=== PATIENT | male | born 1940 | race Caucasian/White ===

== ENCOUNTER 2023-12-07 01:15 | Inpatient (IN) | payer MEDICARE ==
[2023-12-07] VITALS (8 sets, daily range): BP systolic 85–155; PULSE 72–85; RESP 13–18; TEMP 96.4–98.6; O2SAT 92–97
[~2023-12-07] VITALS: Ht 170.2 cm; Wt 63.5 kg
[2023-12-07 01:50] LABS: EOSINOPHILS % (AUTO) 0.2 % (0.0-4.0); LYMPHOCYTES # (AUTO) 0.7 K/uL (1.0-5.5); MONOCYTES # (AUTO) 0.8 K/uL (0.0-1.0); RED CELL DISTRIBUTION WIDTH 13.3 % (9.0-15.0)
[2023-12-07 01:56] LABS: ALANINE AMINOTRANSFERASE 29 U/L (12-78); ALBUMIN 4.2 g/dL (3.4-4.8); ANION GAP 9 (5-15); ASPARTATE AMINOTRANSFERASE 27 U/L (10-37); BILIRUBIN,DIRECT 0.3 mg/dL (0.0-0.3); CALCIUM 9.6 mg/dL (8.4-11.0); CARBON DIOXIDE 27 mmol/L (23-29); CHLORIDE 88 mmol/L (98-107); CREATININE 1.24 mg/dL (0.55-1.30); GLUCOSE 161 mg/dL (74-106); LIPASE 51 U/L (16-77); POTASSIUM 4.1 mmol/L (3.5-5.1); SODIUM SERUM 124 mmol/L (136-145); TOTAL BILIRUBIN 1.1 mg/dL (0.0-1.0); TOTAL PROTEIN, SERUM 7.5 g/dL (6.4-8.3); UREA NITROGEN, BLOOD 25 mg/dL (8-21)
[2023-12-07 01:58] LABS: BASOPHILS % (AUTO) 0.1 % (0.0-2.0); RED BLOOD CELL COUNT(AUTO) 4.79 MIL/uL (4.2-6.2)
[2023-12-07 02:12] LABS: HEMATOCRIT 43.5 % (36-54); HEMOGLOBIN 15.2 g/dL (14.0-18.0); LYMPHOCYTES % (AUTO) 4.8 % (20.5-51.5); MEAN CORPUSCULAR HEMOGLOBIN 32 pg (27-31); MEAN CORPUSCULAR HGB CONC 35 % (32-36); MEAN CORPUSCULAR VOLUME 91 fL (79.0-98.0); MONOCYTES % (AUTO) 6.2 % (1.7-9.3); NEUTROPHILS % (AUTO) 88.7 % (40.0-70.0); PLATELET COUNT (AUTO) 257 K/uL (130-430); WHITE BLOOD COUNT (AUTO) 13.6 K/uL (4.8-10.8)
[2023-12-07] MEDS ORDERED: NACL 0.9% 1,000 ML IV ONE (04:00)
[2023-12-07] MEDS ORDERED: CLOP75TA32 PO (04:02)
[2023-12-07] MEDS ORDERED: AMLO10TA88 PO (04:02)
[2023-12-07] MEDS ORDERED: HYDR12.55 PO (04:02)
[2023-12-07] MEDS ORDERED: CARV3.1246 PO (04:02)
[2023-12-07] MEDS ORDERED: VALS160T29 PO (04:02)
[2023-12-07] MEDS ORDERED: ATOR40TA68 PO (04:02)
[2023-12-07] MEDS ORDERED: TRAM50TA2 PO (04:02)
[2023-12-07 04:36] LABS: PROTHROMBIN TIME 10.6 SECS (9.5-12.5)
[2023-12-07] MEDS ORDERED: DONE10TA44 PO (04:57)
[2023-12-07] MEDS ORDERED: metroNIDAZOLE 500 mg/NS 100 mL IVPB IV ONE (06:00)
[2023-12-07] MEDS ORDERED: ONDANSETRON HCL 4 MG/2 ML VIAL ONE (06:00)
[2023-12-07] MEDS ORDERED: ceFAZolin SODIUM 2 GM VIAL ONE (06:00)
[2023-12-07] MEDS ORDERED: GLYCOPYRROLATE 0.2 MG/ML VIAL ONE (06:00)
[2023-12-07] MEDS ORDERED: SEVOFLURANE 15 MIN GAS INH ONE (06:00)
[2023-12-07] MEDS ORDERED: NEOSTIGMINE METHYLSULFATE 1 MG/ML, 10 ML VIAL ONE (06:00)
[2023-12-07] MEDS ORDERED: ROCURONIUM BROMIDE 10 MG/ML (ZEMURON) ONE (06:00)
[2023-12-07] MEDS ORDERED: NS IRRIG SOLN 1000 ML IR ONE (06:00)
[2023-12-07] MEDS ORDERED: WATER FOR IRRIGATION,STERILE 1,000 ML IRRIG.SOLN IR ONE (06:00)
[2023-12-07] MEDS ORDERED: BUPIVACAINE /PF 0.25% 30 ML VIAL INJ ONE (06:00)
[2023-12-07] MEDS ORDERED: PROPOFOL 200MG/ 20ML VIAL (DIPRIVAN) IV ONE (06:00)
[2023-12-07] MEDS ORDERED: NS 1000 ML IV.SOLN IV ONE (06:00)
[2023-12-07] MEDS ORDERED: SUCCINYLCHOLINE CHLORIDE 20 MG/ML(QUELICIN) ONE (06:00)
[2023-12-07] MEDS ORDERED: DEXAMETHASONE SOD PHOSPHATE 4 MG/ML VIAL ONE (06:00)
[2023-12-07 06:26] LABS: BILIRUBIN,URINE NEGATIVE (NEGATIVE); BLOOD, URINE NEGATIVE (NEGATIVE); CLARITY/URINE CLEAR (CLEAR); COLOR,URINE YELLOW (YELLOW); GLUCOSE,URINE TRACE (NEGATIVE); KETONES,URINE 2+ (NEGATIVE); LEUKOCYTE ESTERASE ,URINE NEGATIVE (NEGATIVE); NITRITE, URINE NEGATIVE (NEGATIVE); PROTEIN URINE TRACE (NEGATIVE); UROBILINOGEN,URINE 0.2 (0.2-1.0)
[2023-12-07 07:25] LABS: RBC,URINE 0-3 /HPF (0-3)
[2023-12-07 07:26] LABS: BACTERIA,URINE FEW /HPF (None Seen); WBC,URINE NONE SEEN /HPF (0-3)
[2023-12-07] MEDS ORDERED: HYDROmorphone 1 MG/ML INJ. CARTRIDGE IM PRN (07:30)
[2023-12-07] MEDS: D5/0.45 NS 1,000 ML IV SCH (10:31)
[2023-12-07] MEDS ORDERED: hydrALAZINE HCL 20 MG/ML VIAL IVP PRN (11:15)
[2023-12-07] MEDS: PANTOPRAZOLE SODIUM 40 MG TAB PO ONE (13:13)
[2023-12-07 14:32] LABS: FREE T4 (FREE THYROXINE) 1.5 ng/dl (0.8-1.5); THYROID STIMULATING HORMONE 0.83 uIu/mL (0.36-3.74)
[2023-12-07] MEDS: NACL 0.9% 1,000 ML IV SCH (16:58)
[2023-12-07] MEDS: PIPERACILLIN/TAZO 3.375 GM in D5W 50 ML IV SCH (17:10)
[2023-12-07] MEDS: HYDROcodone/ACETAMIN 5-325 MG TAB (NORCO/ VICODIN) PO PRN (18:20)
[2023-12-07] MEDS: COMMUNICATION ORDER XX ONE (21:45)
[2023-12-07] MEDS: LR 500 ML IV ONE (22:44)
[2023-12-08] VITALS: BP_SYST 108; PULSE 85; RESP 16; TEMP 97.8; O2SAT 96
[2023-12-08 08:05] VITALS: BP_SYST 115; PULSE 81; RESP 18; TEMP 98.6; O2SAT 99
[2023-12-08] MEDS: QUEtiapine FUMARATE 25 MG TABLET PO ONE (10:00)
[2023-12-08] MEDS: PANTOPRAZOLE SODIUM 40 MG TAB PO SCH (10:00)
[2023-12-08 10:30] LABS: ALANINE AMINOTRANSFERASE 17 U/L (12-78); ALBUMIN 2.6 g/dL (3.4-4.8); ANION GAP 9 (5-15); ASPARTATE AMINOTRANSFERASE 27 U/L (10-37); CALCIUM 8.3 mg/dL (8.4-11.0); CARBON DIOXIDE 24 mmol/L (23-29); CHLORIDE 91 mmol/L (98-107); GLUCOSE 107 mg/dL (74-106); POTASSIUM 4.1 mmol/L (3.5-5.1); SODIUM SERUM 124 mmol/L (136-145); TOTAL BILIRUBIN 0.9 mg/dL (0.0-1.0); TOTAL PROTEIN, SERUM 5.4 g/dL (6.4-8.3); UREA NITROGEN, BLOOD 37 mg/dL (8-21)
[2023-12-08 10:31] LABS: BASOPHILS % (AUTO) 0.1 % (0.0-2.0); HEMATOCRIT 35.5 % (36-54); HEMOGLOBIN 12.2 g/dL (14.0-18.0); LYMPHOCYTES # (AUTO) 0.3 K/uL (1.0-5.5); LYMPHOCYTES % (AUTO) 1.8 % (20.5-51.5); MEAN CORPUSCULAR HEMOGLOBIN 31 pg (27-31); MEAN CORPUSCULAR HGB CONC 34 % (32-36); MEAN CORPUSCULAR VOLUME 91 fL (79.0-98.0); MONOCYTES % (AUTO) 6.5 % (1.7-9.3); NEUTROPHILS # (AUTO) 14.5 K/uL (1.8-7.7); NEUTROPHILS % (AUTO) 91.6 % (40.0-70.0); PLATELET COUNT (AUTO) 179 K/uL (130-430); RED CELL DISTRIBUTION WIDTH 13.4 % (9.0-15.0); WHITE BLOOD COUNT (AUTO) 15.8 K/uL (4.8-10.8)
[2023-12-08 11:04] VITALS: BP_SYST 131; PULSE 79; RESP 16; TEMP 97.6; O2SAT 96
[2023-12-08] MEDS ORDERED: LORazepam 2 MG/ML VIAL IVP PRN ×2 (15:15)
[2023-12-08 16:12] VITALS: BP_SYST 127; PULSE 76; RESP 14; TEMP 98; O2SAT 96
[2023-12-08] MEDS: ACETAMINOPHEN 325 MG TABLET PO PRN (18:02)
[2023-12-08] MEDS: D5/0.45 NS 1,000 ML IV SCH (18:04)
[2023-12-08] MEDS: SIMETHICONE 80 MG TAB.CHEW PO SCH (20:38)
[2023-12-08] MEDS ORDERED: QUEtiapine FUMARATE 25 MG TABLET PO SCH (21:00)
[2023-12-09 00:40] VITALS: BP_SYST 118; PULSE 91; RESP 16; TEMP 97.8; O2SAT 97
[2023-12-09 05:09] VITALS: RESP 20; TEMP 98.3; O2SAT 98
[2023-12-09 06:27] LABS: BASOPHILS % (AUTO) 0.1 % (0.0-2.0); EOSINOPHILS % (AUTO) 0.1 % (0.0-4.0); HEMOGLOBIN 9.9 g/dL (14.0-18.0); LYMPHOCYTES # (AUTO) 0.4 K/uL (1.0-5.5); LYMPHOCYTES % (AUTO) 2.7 % (20.5-51.5); MEAN CORPUSCULAR HEMOGLOBIN 32 pg (27-31); MEAN CORPUSCULAR HGB CONC 35 % (32-36); MEAN CORPUSCULAR VOLUME 91 fL (79.0-98.0); MONOCYTES # (AUTO) 1.1 K/uL (0.0-1.0); MONOCYTES % (AUTO) 7.7 % (1.7-9.3); NEUTROPHILS # (AUTO) 12.8 K/uL (1.8-7.7); NEUTROPHILS % (AUTO) 89.4 % (40.0-70.0); PLATELET COUNT (AUTO) 156 K/uL (130-430); RED BLOOD CELL COUNT(AUTO) 3.08 MIL/uL (4.2-6.2); RED CELL DISTRIBUTION WIDTH 13.6 % (9.0-15.0); WHITE BLOOD COUNT (AUTO) 14.4 K/uL (4.8-10.8)
[2023-12-09 06:53] LABS: ALANINE AMINOTRANSFERASE 17 U/L (12-78); ALBUMIN 2.1 g/dL (3.4-4.8); ANION GAP 7 (5-15); ASPARTATE AMINOTRANSFERASE 20 U/L (10-37); CALCIUM 8.6 mg/dL (8.4-11.0); CARBON DIOXIDE 25 mmol/L (23-29); CHLORIDE 91 mmol/L (98-107); GLUCOSE 127 mg/dL (74-106); SODIUM SERUM 123 mmol/L (136-145); TOTAL BILIRUBIN 0.7 mg/dL (0.0-1.0); UREA NITROGEN, BLOOD 32 mg/dL (8-21)
[2023-12-09] MEDS: D5NS 1,000 ML IV SCH (09:57)
[2023-12-09 12:17] VITALS: BP_SYST 120; PULSE 77; RESP 18; TEMP 97.8; O2SAT 98
[2023-12-09 16:04] VITALS: BP_SYST 143; PULSE 85; RESP 18; TEMP 98.9; O2SAT 96
[2023-12-09] MEDS: SIMETHICONE 80 MG TAB.CHEW PO ONE (18:29)
[2023-12-09 20:00] VITALS: BP_SYST 137; PULSE 89; RESP 18; TEMP 98.2; O2SAT 98
[2023-12-10] VITALS (9 sets, daily range): BP systolic 101–140; PULSE 65–89; RESP 16–20; TEMP 97.8–98.8; O2SAT 94–96
[2023-12-10 05:12] LABS: BASOPHILS % (AUTO) 0.1 % (0.0-2.0); EOSINOPHILS # (AUTO) 0.1 K/uL (0.0-0.4); EOSINOPHILS % (AUTO) 0.4 % (0.0-4.0); HEMATOCRIT 24.9 % (36-54); HEMOGLOBIN 8.8 g/dL (14.0-18.0); LYMPHOCYTES # (AUTO) 0.4 K/uL (1.0-5.5); LYMPHOCYTES % (AUTO) 2.6 % (20.5-51.5); MEAN CORPUSCULAR HEMOGLOBIN 32 pg (27-31); MEAN CORPUSCULAR HGB CONC 35 % (32-36); MEAN CORPUSCULAR VOLUME 90 fL (79.0-98.0); MONOCYTES # (AUTO) 1.2 K/uL (0.0-1.0); MONOCYTES % (AUTO) 8.2 % (1.7-9.3); NEUTROPHILS # (AUTO) 13.2 K/uL (1.8-7.7); NEUTROPHILS % (AUTO) 88.7 % (40.0-70.0); PLATELET COUNT (AUTO) 159 K/uL (130-430); RED BLOOD CELL COUNT(AUTO) 2.77 MIL/uL (4.2-6.2); RED CELL DISTRIBUTION WIDTH 13.7 % (9.0-15.0); WHITE BLOOD COUNT (AUTO) 14.9 K/uL (4.8-10.8)
[2023-12-10 05:17] LABS: ALANINE AMINOTRANSFERASE 19 U/L (12-78); ALBUMIN 1.8 g/dL (3.4-4.8); ANION GAP 5 (5-15); ASPARTATE AMINOTRANSFERASE 17 U/L (10-37); CALCIUM 8.4 mg/dL (8.4-11.0); CARBON DIOXIDE 26 mmol/L (23-29); CHLORIDE 89 mmol/L (98-107); CREATININE 0.95 mg/dL (0.55-1.30); GLUCOSE 121 mg/dL (74-106); POTASSIUM 4.2 mmol/L (3.5-5.1); SODIUM SERUM 120 mmol/L (136-145); TOTAL BILIRUBIN 0.7 mg/dL (0.0-1.0); TOTAL PROTEIN, SERUM 4.8 g/dL (6.4-8.3)
[2023-12-10 06:33] LABS: UREA NITROGEN, BLOOD 26 mg/dL (8-21)
[2023-12-10] MEDS: SODIUM CHLORIDE 3% *HI-ALERT* 250 ML IV SCH (12:14)
[2023-12-11] VITALS: BP_SYST 134; PULSE 78; RESP 18; TEMP 98.7; O2SAT 96
[2023-12-11 04:42] LABS: BASOPHILS % (AUTO) 0.1 % (0.0-2.0); EOSINOPHILS # (AUTO) 0.2 K/uL (0.0-0.4); EOSINOPHILS % (AUTO) 1.7 % (0.0-4.0); HEMATOCRIT 23.1 % (36-54); HEMOGLOBIN 8.2 g/dL (14.0-18.0); LYMPHOCYTES # (AUTO) 0.6 K/uL (1.0-5.5); LYMPHOCYTES % (AUTO) 4.7 % (20.5-51.5); MEAN CORPUSCULAR HEMOGLOBIN 32 pg (27-31); MEAN CORPUSCULAR HGB CONC 36 % (32-36); MEAN CORPUSCULAR VOLUME 90 fL (79.0-98.0); MONOCYTES # (AUTO) 1.8 K/uL (0.0-1.0); MONOCYTES % (AUTO) 14.1 % (1.7-9.3); NEUTROPHILS # (AUTO) 9.8 K/uL (1.8-7.7); NEUTROPHILS % (AUTO) 79.4 % (40.0-70.0); PLATELET COUNT (AUTO) 184 K/uL (130-430); RED BLOOD CELL COUNT(AUTO) 2.58 MIL/uL (4.2-6.2); RED CELL DISTRIBUTION WIDTH 13.6 % (9.0-15.0); WHITE BLOOD COUNT (AUTO) 12.4 K/uL (4.8-10.8)
[2023-12-11 05:09] LABS: ALANINE AMINOTRANSFERASE 20 U/L (12-78); ALBUMIN 1.6 g/dL (3.4-4.8); ANION GAP 6 (5-15); ASPARTATE AMINOTRANSFERASE 17 U/L (10-37); CALCIUM 8.1 mg/dL (8.4-11.0); CARBON DIOXIDE 24 mmol/L (23-29); CHLORIDE 92 mmol/L (98-107); CREATININE 0.83 mg/dL (0.55-1.30); GLUCOSE 88 mg/dL (74-106); POTASSIUM 3.8 mmol/L (3.5-5.1); SODIUM SERUM 122 mmol/L (136-145); TOTAL BILIRUBIN 0.8 mg/dL (0.0-1.0); TOTAL PROTEIN, SERUM 4.4 g/dL (6.4-8.3); UREA NITROGEN, BLOOD 24 mg/dL (8-21)
[2023-12-11 08:50] VITALS: BP_SYST 119; PULSE 87; RESP 18; TEMP 97.5; O2SAT 95
[2023-12-11 09:45] VITALS: O2SAT 95
[2023-12-11] MEDS: SODIUM CHLORIDE 3% *HI-ALERT* 500 ML IV ONE (10:41)
[2023-12-11 12:41] VITALS: BP_SYST 137; PULSE 85; RESP 18; TEMP 98.8; O2SAT 96
[2023-12-11] MEDS: ATORVASTATIN 20 MG TABLET PO ONE (16:01)
[2023-12-11] MEDS: CLOPIDOGREL BISULFATE 75 MG TABLET PO ONE (16:01)
[2023-12-11 16:32] VITALS: BP_SYST 124; PULSE 80; RESP 17; TEMP 98; O2SAT 95
[2023-12-11 20:00] VITALS: BP_SYST 137; PULSE 84; RESP 18; TEMP 98.1; O2SAT 96
[2023-12-11 22:26] LABS: ANION GAP 4 (5-15); CALCIUM 7.9 mg/dL (8.4-11.0); CARBON DIOXIDE 27 mmol/L (23-29); CHLORIDE 92 mmol/L (98-107); CREATININE 0.96 mg/dL (0.55-1.30); GLUCOSE 105 mg/dL (74-106); POTASSIUM 3.4 mmol/L (3.5-5.1); SODIUM SERUM 123 mmol/L (136-145); UREA NITROGEN, BLOOD 21 mg/dL (8-21)
[2023-12-12] VITALS (7 sets, daily range): BP systolic 132–138; PULSE 78–90; RESP 15–20; TEMP 97.8–99.2; O2SAT 95–98
[2023-12-12 04:53] LABS: BASOPHILS % (AUTO) 0.2 % (0.0-2.0); EOSINOPHILS # (AUTO) 0.4 K/uL (0.0-0.4); HEMATOCRIT 23.5 % (36-54); HEMOGLOBIN 8.2 g/dL (14.0-18.0); LYMPHOCYTES # (AUTO) 0.6 K/uL (1.0-5.5); LYMPHOCYTES % (AUTO) 4.8 % (20.5-51.5); MEAN CORPUSCULAR HEMOGLOBIN 31 pg (27-31); MEAN CORPUSCULAR HGB CONC 35 % (32-36); MEAN CORPUSCULAR VOLUME 90 fL (79.0-98.0); MONOCYTES # (AUTO) 2.1 K/uL (0.0-1.0); MONOCYTES % (AUTO) 17.2 % (1.7-9.3); NEUTROPHILS % (AUTO) 74.8 % (40.0-70.0); PLATELET COUNT (AUTO) 226 K/uL (130-430); RED CELL DISTRIBUTION WIDTH 13.6 % (9.0-15.0); WHITE BLOOD COUNT (AUTO) 12.1 K/uL (4.8-10.8)
[2023-12-12 05:05] LABS: ALANINE AMINOTRANSFERASE 29 U/L (12-78); ALBUMIN 1.6 g/dL (3.4-4.8); ANION GAP 7 (5-15); ASPARTATE AMINOTRANSFERASE 19 U/L (10-37); CALCIUM 7.9 mg/dL (8.4-11.0); CARBON DIOXIDE 27 mmol/L (23-29); CHLORIDE 92 mmol/L (98-107); CREATININE 0.86 mg/dL (0.55-1.30); GLUCOSE 100 mg/dL (74-106); POTASSIUM 3.3 mmol/L (3.5-5.1); SODIUM SERUM 126 mmol/L (136-145); TOTAL PROTEIN, SERUM 4.6 g/dL (6.4-8.3); UREA NITROGEN, BLOOD 19 mg/dL (8-21)
[2023-12-12] MEDS: ATORVASTATIN 20 MG TABLET PO SCH (09:56)
[2023-12-12] MEDS: CLOPIDOGREL BISULFATE 75 MG TABLET PO SCH (09:56)
[2023-12-12] MEDS ORDERED: SODIUM CHLORIDE 3% *HI-ALERT* 500 ML IV SCH (11:15)
[2023-12-12] MEDS: MAGNESIUM SULFATE 50 ML IV ONE (11:49)
[2023-12-12] MEDS: POTASSIUM CHLORIDE 20 MEQ/PKT PACKET PO ONE (11:49)
[2023-12-12] MEDS ORDERED: SODIUM CHLORIDE 3% *HI-ALERT* 300 ML IV SCH (13:00)
[2023-12-12] MEDS: OLANZapine IntraMuscular 10 MG VIAL (FOR I.M. INJECTION ONLY) IM PRN (23:28)
[2023-12-13] VITALS (7 sets, daily range): BP systolic 126–152; PULSE 76–101; RESP 15–18; TEMP 97.1–99.6; O2SAT 94–99
[2023-12-13 05:27] LABS: HEMATOCRIT 25.3 % (36-54); HEMOGLOBIN 8.9 g/dL (14.0-18.0); MEAN CORPUSCULAR HEMOGLOBIN 32 pg (27-31); MEAN CORPUSCULAR HGB CONC 35 % (32-36); MEAN CORPUSCULAR VOLUME 92 fL (79.0-98.0); PLATELET COUNT (AUTO) 294 K/uL (130-430); RED BLOOD CELL COUNT(AUTO) 2.76 MIL/uL (4.2-6.2); RED CELL DISTRIBUTION WIDTH 13.4 % (9.0-15.0); WHITE BLOOD COUNT (AUTO) 10.3 K/uL (4.8-10.8)
[2023-12-13 05:34] LABS: ALANINE AMINOTRANSFERASE 33 U/L (12-78); ALBUMIN 1.9 g/dL (3.4-4.8); ANION GAP 5 (5-15); ASPARTATE AMINOTRANSFERASE 28 U/L (10-37); CALCIUM 8.6 mg/dL (8.4-11.0); CARBON DIOXIDE 29 mmol/L (23-29); CHLORIDE 94 mmol/L (98-107); CREATININE 0.98 mg/dL (0.55-1.30); GLUCOSE 103 mg/dL (74-106); POTASSIUM 3.6 mmol/L (3.5-5.1); SODIUM SERUM 128 mmol/L (136-145); TOTAL PROTEIN, SERUM 5.3 g/dL (6.4-8.3); UREA NITROGEN, BLOOD 18 mg/dL (8-21)
[2023-12-13] MEDS: SODIUM CHLORIDE 1,000 MG TABLET PO ONE (09:52)
[2023-12-13 10:44] LABS: BAND % (MANUAL) 4 % (0-6); BASOPHILS % (MANUAL) 0 % (0-2); EOSINOPHILS % (MANUAL) 3 % (0-7); LYMPHOCYTES % (MANUAL) 4 % (20-46); MONOCYTES % (MANUAL) 18 % (0-11)
[2023-12-13 10:45] LABS: PLATELET ESTIMATE ADEQUATE (ADEQUATE)
[2023-12-13] MEDS: SODIUM CHLORIDE 3% *HI-ALERT* 500 ML IV ONE (14:51)
[2023-12-13] MEDS: traZODone HCL 50 MG TABLET (DESYREL) PO SCH (20:14)
[2023-12-13] MEDS ORDERED: SODIUM CHLORIDE 1,000 MG TABLET PO SCH (21:00)
[2023-12-14] VITALS (10 sets, daily range): BP systolic 104–142; PULSE 84–106; RESP 16–20; TEMP 97.5–98.8; O2SAT 90–97
[2023-12-14 08:38] LABS: BASOPHILS % (AUTO) 0.3 % (0.0-2.0); EOSINOPHILS # (AUTO) 0.3 K/uL (0.0-0.4); HEMATOCRIT 23.7 % (36-54); HEMOGLOBIN 8.1 g/dL (14.0-18.0); LYMPHOCYTES # (AUTO) 0.7 K/uL (1.0-5.5); LYMPHOCYTES % (AUTO) 5.8 % (20.5-51.5); MEAN CORPUSCULAR HEMOGLOBIN 31 pg (27-31); MEAN CORPUSCULAR HGB CONC 34 % (32-36); MEAN CORPUSCULAR VOLUME 92 fL (79.0-98.0); MONOCYTES # (AUTO) 1.4 K/uL (0.0-1.0); MONOCYTES % (AUTO) 12.4 % (1.7-9.3); NEUTROPHILS # (AUTO) 9.1 K/uL (1.8-7.7); NEUTROPHILS % (AUTO) 78.5 % (40.0-70.0); PLATELET COUNT (AUTO) 363 K/uL (130-430); RED BLOOD CELL COUNT(AUTO) 2.58 MIL/uL (4.2-6.2); RED CELL DISTRIBUTION WIDTH 13.5 % (9.0-15.0); WHITE BLOOD COUNT (AUTO) 11.6 K/uL (4.8-10.8)
[2023-12-14 08:56] LABS: ALANINE AMINOTRANSFERASE 35 U/L (12-78); ALBUMIN 1.8 g/dL (3.4-4.8); ANION GAP 4 (5-15); ASPARTATE AMINOTRANSFERASE 28 U/L (10-37); CALCIUM 8.3 mg/dL (8.4-11.0); CARBON DIOXIDE 29 mmol/L (23-29); CHLORIDE 96 mmol/L (98-107); CREATININE 0.98 mg/dL (0.55-1.30); GLUCOSE 100 mg/dL (74-106); POTASSIUM 3.2 mmol/L (3.5-5.1); SODIUM SERUM 129 mmol/L (136-145); UREA NITROGEN, BLOOD 14 mg/dL (8-21)
[2023-12-14] MEDS: POTASSIUM CHLORIDE 20 MEQ/PKT PACKET PO ONE (12:32)
[2023-12-14] MEDS: ACETAMINOPHEN/CODEINE 300 MG-30 MG TABLET PO PRN (13:34)
[2023-12-14] MEDS: IPRATROPIUM/ALBUTEROL SULFATE 3 ML AMPUL.NEB (DUONEB) INH ONE (17:15)
[2023-12-14] MEDS: IPRATROPIUM/ALBUTEROL SULFATE 3 ML AMPUL.NEB (DUONEB) ONE (17:51)
[2023-12-14] MEDS: IPRATROPIUM/ALBUTEROL SULFATE 3 ML AMPUL.NEB (DUONEB) INH SCH (19:36)
[2023-12-14] MEDS ORDERED: SODIUM CHLORIDE 3% *HI-ALERT* 500 ML IV SCH (22:45)
[2023-12-15] VITALS (11 sets, daily range): BP systolic 101–125; PULSE 85–99; RESP 18; TEMP 97.9–98.6; O2SAT 93–100
[2023-12-15] MEDS: VANCOMYCIN HCL 1 GM/NS PREMIX 250 ML IV ONE (00:23)
[2023-12-15] MEDS: VANCOMYCIN HCL 1000 MG/VIAL IV ONE (00:30)
[2023-12-15 04:43] LABS: BASOPHILS % (AUTO) 0.2 % (0.0-2.0); EOSINOPHILS # (AUTO) 0.1 K/uL (0.0-0.4); EOSINOPHILS % (AUTO) 0.6 % (0.0-4.0); LYMPHOCYTES # (AUTO) 0.6 K/uL (1.0-5.5); LYMPHOCYTES % (AUTO) 3.7 % (20.5-51.5); MEAN CORPUSCULAR HEMOGLOBIN 32 pg (27-31); MEAN CORPUSCULAR HGB CONC 34 % (32-36); MEAN CORPUSCULAR VOLUME 93 fL (79.0-98.0); MONOCYTES # (AUTO) 1.1 K/uL (0.0-1.0); MONOCYTES % (AUTO) 6.3 % (1.7-9.3); NEUTROPHILS # (AUTO) 15.6 K/uL (1.8-7.7); NEUTROPHILS % (AUTO) 89.2 % (40.0-70.0); PLATELET COUNT (AUTO) 356 K/uL (130-430); RED BLOOD CELL COUNT(AUTO) 2.23 MIL/uL (4.2-6.2); RED CELL DISTRIBUTION WIDTH 13.9 % (9.0-15.0); WHITE BLOOD COUNT (AUTO) 17.5 K/uL (4.8-10.8)
[2023-12-15 04:49] LABS: ALANINE AMINOTRANSFERASE 32 U/L (12-78); ALBUMIN 1.5 g/dL (3.4-4.8); ANION GAP 5 (5-15); ASPARTATE AMINOTRANSFERASE 25 U/L (10-37); CALCIUM 8.1 mg/dL (8.4-11.0); CARBON DIOXIDE 26 mmol/L (23-29); CHLORIDE 98 mmol/L (98-107); CREATININE 1.06 mg/dL (0.55-1.30); GLUCOSE 115 mg/dL (74-106); POTASSIUM 4.1 mmol/L (3.5-5.1); SODIUM SERUM 129 mmol/L (136-145); TOTAL BILIRUBIN 0.8 mg/dL (0.0-1.0); TOTAL PROTEIN, SERUM 4.3 g/dL (6.4-8.3); UREA NITROGEN, BLOOD 21 mg/dL (8-21)
[2023-12-15 06:49] LABS: HEMATOCRIT 20.7 % (36-54); HEMOGLOBIN 7.1 g/dL (14.0-18.0)
[2023-12-15 11:12] LABS: BASOPHILS # (AUTO) 0.1 K/uL (0.0-0.2); BASOPHILS % (AUTO) 0.5 % (0.0-2.0); EOSINOPHILS # (AUTO) 0.2 K/uL (0.0-0.4); EOSINOPHILS % (AUTO) 1.6 % (0.0-4.0); HEMATOCRIT 22.3 % (36-54); HEMOGLOBIN 7.7 g/dL (14.0-18.0); LYMPHOCYTES # (AUTO) 0.5 K/uL (1.0-5.5); LYMPHOCYTES % (AUTO) 3.8 % (20.5-51.5); MEAN CORPUSCULAR HEMOGLOBIN 32 pg (27-31); MEAN CORPUSCULAR HGB CONC 34 % (32-36); MEAN CORPUSCULAR VOLUME 92 fL (79.0-98.0); MONOCYTES # (AUTO) 1.2 K/uL (0.0-1.0); MONOCYTES % (AUTO) 8.5 % (1.7-9.3); NEUTROPHILS # (AUTO) 11.8 K/uL (1.8-7.7); NEUTROPHILS % (AUTO) 85.6 % (40.0-70.0); PLATELET COUNT (AUTO) 391 K/uL (130-430); RED BLOOD CELL COUNT(AUTO) 2.42 MIL/uL (4.2-6.2); RED CELL DISTRIBUTION WIDTH 13.9 % (9.0-15.0); WHITE BLOOD COUNT (AUTO) 13.8 K/uL (4.8-10.8)
[2023-12-15] MEDS: NACL 0.9% 1,000 ML IV SCH (21:16)
[2023-12-15] MEDS: VANCOMYCIN HCL 1,000 MG in NS 250 ML IV SCH (21:17)
[2023-12-16] VITALS (8 sets, daily range): BP systolic 118–152; PULSE 60–97; RESP 14–20; TEMP 97.7–98.2; O2SAT 96–99
[2023-12-16 04:30] LABS: BASOPHILS % (AUTO) 0.3 % (0.0-2.0); EOSINOPHILS # (AUTO) 0.2 K/uL (0.0-0.4); HEMOGLOBIN 8.5 g/dL (14.0-18.0); LYMPHOCYTES # (AUTO) 0.4 K/uL (1.0-5.5); LYMPHOCYTES % (AUTO) 2.5 % (20.5-51.5); MEAN CORPUSCULAR HEMOGLOBIN 32 pg (27-31); MEAN CORPUSCULAR HGB CONC 34 % (32-36); MEAN CORPUSCULAR VOLUME 93 fL (79.0-98.0); MONOCYTES # (AUTO) 1.3 K/uL (0.0-1.0); MONOCYTES % (AUTO) 8.1 % (1.7-9.3); NEUTROPHILS # (AUTO) 13.9 K/uL (1.8-7.7); NEUTROPHILS % (AUTO) 88.1 % (40.0-70.0); PLATELET COUNT (AUTO) 435 K/uL (130-430); RED CELL DISTRIBUTION WIDTH 13.9 % (9.0-15.0); WHITE BLOOD COUNT (AUTO) 15.8 K/uL (4.8-10.8)
[2023-12-16 05:21] LABS: ALANINE AMINOTRANSFERASE 58 U/L (12-78); ALBUMIN 1.8 g/dL (3.4-4.8); ANION GAP 8 (5-15); ASPARTATE AMINOTRANSFERASE 45 U/L (10-37); CALCIUM 8.7 mg/dL (8.4-11.0); CARBON DIOXIDE 27 mmol/L (23-29); CHLORIDE 98 mmol/L (98-107); CREATININE 0.96 mg/dL (0.55-1.30); GLUCOSE 111 mg/dL (74-106); POTASSIUM 4.1 mmol/L (3.5-5.1); SODIUM SERUM 133 mmol/L (136-145); TOTAL BILIRUBIN 0.8 mg/dL (0.0-1.0); TOTAL PROTEIN, SERUM 5.6 g/dL (6.4-8.3); UREA NITROGEN, BLOOD 25 mg/dL (8-21)
[2023-12-16] MEDS: DOCUSATE SODIUM 100 MG CAPSULE PO SCH (22:02)
[2023-12-16] MEDS: PIPERACILLIN/TAZO 3.375 GM in D5W 50 ML IV SCH (22:03)
[2023-12-17] VITALS (12 sets, daily range): BP systolic 114–141; PULSE 90–111; RESP 14–18; TEMP 97.3–98.9; O2SAT 93–100
[2023-12-17 06:53] LABS: BASOPHILS # (AUTO) 0.1 K/uL (0.0-0.2); BASOPHILS % (AUTO) 0.5 % (0.0-2.0); EOSINOPHILS # (AUTO) 0.2 K/uL (0.0-0.4); EOSINOPHILS % (AUTO) 1.3 % (0.0-4.0); HEMATOCRIT 23.8 % (36-54); HEMOGLOBIN 8.1 g/dL (14.0-18.0); LYMPHOCYTES # (AUTO) 0.4 K/uL (1.0-5.5); LYMPHOCYTES % (AUTO) 2.6 % (20.5-51.5); MEAN CORPUSCULAR HEMOGLOBIN 32 pg (27-31); MEAN CORPUSCULAR HGB CONC 34 % (32-36); MEAN CORPUSCULAR VOLUME 94 fL (79.0-98.0); MONOCYTES # (AUTO) 1.2 K/uL (0.0-1.0); MONOCYTES % (AUTO) 8.5 % (1.7-9.3); NEUTROPHILS # (AUTO) 12.4 K/uL (1.8-7.7); NEUTROPHILS % (AUTO) 87.1 % (40.0-70.0); PLATELET COUNT (AUTO) 474 K/uL (130-430); RED BLOOD CELL COUNT(AUTO) 2.54 MIL/uL (4.2-6.2); WHITE BLOOD COUNT (AUTO) 14.2 K/uL (4.8-10.8)
[2023-12-17 07:50] LABS: ALANINE AMINOTRANSFERASE 59 U/L (12-78); ALBUMIN 1.8 g/dL (3.4-4.8); ANION GAP 6 (5-15); ASPARTATE AMINOTRANSFERASE 48 U/L (10-37); CALCIUM 8.7 mg/dL (8.4-11.0); CARBON DIOXIDE 28 mmol/L (23-29); CHLORIDE 100 mmol/L (98-107); CREATININE 1.01 mg/dL (0.55-1.30); GLUCOSE 104 mg/dL (74-106); POTASSIUM 3.4 mmol/L (3.5-5.1); SODIUM SERUM 134 mmol/L (136-145); TOTAL BILIRUBIN 0.8 mg/dL (0.0-1.0); TOTAL PROTEIN, SERUM 5.3 g/dL (6.4-8.3); UREA NITROGEN, BLOOD 25 mg/dL (8-21)
[2023-12-17] MEDS: POTASSIUM CHLORIDE 20 MEQ TABLET.ER PO ONE (09:00)
[2023-12-17] MEDS: FUROSEMIDE 20 MG/2 ML VIAL IVP ONE (10:45)
[2023-12-17] MEDS: METOCLOPRAMIDE HCL 10 MG/2 ML VIAL IVP SCH (13:45)
[2023-12-17] MEDS: HEPARIN SODIUM,PORCINE 5,000 UNITS/ML VIAL SUBCUT SCH (22:15)
[2023-12-18] VITALS (19 sets, daily range): BP systolic 106–152; PULSE 60–123; RESP 14–26; TEMP 97.6–100.8; O2SAT 90–99
[2023-12-18 07:22] LABS: BASOPHILS # (AUTO) 0.1 K/uL (0.0-0.2); BASOPHILS % (AUTO) 0.7 % (0.0-2.0); EOSINOPHILS # (AUTO) 0.2 K/uL (0.0-0.4); EOSINOPHILS % (AUTO) 1.7 % (0.0-4.0); HEMATOCRIT 24.6 % (36-54); HEMOGLOBIN 8.3 g/dL (14.0-18.0); LYMPHOCYTES # (AUTO) 0.5 K/uL (1.0-5.5); LYMPHOCYTES % (AUTO) 4.5 % (20.5-51.5); MEAN CORPUSCULAR HEMOGLOBIN 31 pg (27-31); MEAN CORPUSCULAR HGB CONC 34 % (32-36); MEAN CORPUSCULAR VOLUME 92 fL (79.0-98.0); MONOCYTES # (AUTO) 1.2 K/uL (0.0-1.0); MONOCYTES % (AUTO) 10.8 % (1.7-9.3); NEUTROPHILS # (AUTO) 8.9 K/uL (1.8-7.7); NEUTROPHILS % (AUTO) 82.3 % (40.0-70.0); PLATELET COUNT (AUTO) 532 K/uL (130-430); RED BLOOD CELL COUNT(AUTO) 2.67 MIL/uL (4.2-6.2); WHITE BLOOD COUNT (AUTO) 10.9 K/uL (4.8-10.8)
[2023-12-18 07:45] LABS: ANION GAP 7 (5-15); CALCIUM 8.7 mg/dL (8.4-11.0); CARBON DIOXIDE 28 mmol/L (23-29); CHLORIDE 100 mmol/L (98-107); CREATININE 1.07 mg/dL (0.55-1.30); GLUCOSE 109 mg/dL (74-106); POTASSIUM 3.8 mmol/L (3.5-5.1); SODIUM SERUM 135 mmol/L (136-145); UREA NITROGEN, BLOOD 24 mg/dL (8-21)
[2023-12-18] MEDS: FUROSEMIDE 40 MG/4 ML VIAL IVP SCH (09:01)
[2023-12-18] MEDS ORDERED: DOCU-144 PO (10:48)
[2023-12-18] MEDS ORDERED: PRO40 PO (10:48)
[2023-12-18] MEDS: NACL 0.9% 1,000 ML IV ONE (13:28)
[2023-12-18] MEDS ORDERED: MEROPENEM 1 GM in NS 100 ML IV SCH (14:00)
[2023-12-18] MEDS ORDERED: metroNIDAZOLE 500 mg/NS 100 ML IV SCH (14:00)
[2023-12-18] MEDS: MEROPENEM 1 GM in NS 100 ML IV SCH (14:32)
[2023-12-18] MEDS: KCL 40mEq in D5/0.45NS 1000 mL 1,000 ML IV SCH (14:33)
[2023-12-18] MEDS ORDERED: SEVOFLURANE 15 MIN GAS INH ONE (19:30)
[2023-12-18] MEDS ORDERED: ceFAZolin SODIUM 1 GM VIAL ONE (19:30)
[2023-12-18] MEDS ORDERED: ROCURONIUM BROMIDE 10 MG/ML (ZEMURON) ONE (19:30)
[2023-12-18] MEDS ORDERED: HYDROmorphone 2 MG/ML VIAL ONE (19:30)
[2023-12-18] MEDS ORDERED: SUCCINYLCHOLINE CHLORIDE 20 MG/ML(QUELICIN) ONE (19:30)
[2023-12-18] MEDS ORDERED: [UNRECOGNIZED DRUG - OTHER] IJ ONE (19:30)
[2023-12-18] MEDS ORDERED: NS IRRIG SOLN 1000 ML IR ONE (19:30)
[2023-12-18] MEDS ORDERED: GLYCOPYRROLATE 0.2 MG/ML VIAL ONE (19:30)
[2023-12-18] MEDS ORDERED: METOCLOPRAMIDE HCL 10 MG/10 ML UDC ONE (19:30)
[2023-12-18] MEDS ORDERED: ONDANSETRON HCL 4 MG/2 ML VIAL ONE (19:30)
[2023-12-18] MEDS ORDERED: PROPOFOL DRIP IV ONE (19:30)
[2023-12-18] MEDS ORDERED: WATER FOR IRRIGATION,STERILE 1,000 ML IRRIG.SOLN IR ONE (19:30)
[2023-12-18] MEDS ORDERED: LIDOCAINE HCL IJ ONE (19:30)
[2023-12-18] MEDS ORDERED: *TPN PER PHARMACY XX PRN (22:00)
[2023-12-18] MEDS: MORPHINE 2 MG/ML INJ. SYRINGE IVP PRN (23:00)
[2023-12-18 23:10] LABS: BASOPHILS # (AUTO) 0.1 K/uL (0.0-0.2); BASOPHILS % (AUTO) 0.3 % (0.0-2.0); EOSINOPHILS # (AUTO) 0.1 K/uL (0.0-0.4); EOSINOPHILS % (AUTO) 0.4 % (0.0-4.0); HEMATOCRIT 26.3 % (36-54); HEMOGLOBIN 8.9 g/dL (14.0-18.0); LYMPHOCYTES # (AUTO) 0.3 K/uL (1.0-5.5); LYMPHOCYTES % (AUTO) 1.8 % (20.5-51.5); MEAN CORPUSCULAR HEMOGLOBIN 32 pg (27-31); MEAN CORPUSCULAR HGB CONC 34 % (32-36); MEAN CORPUSCULAR VOLUME 93 fL (79.0-98.0); MONOCYTES # (AUTO) 0.5 K/uL (0.0-1.0); MONOCYTES % (AUTO) 2.8 % (1.7-9.3); NEUTROPHILS # (AUTO) 16.3 K/uL (1.8-7.7); NEUTROPHILS % (AUTO) 94.7 % (40.0-70.0); PLATELET COUNT (AUTO) 628 K/uL (130-430); RED BLOOD CELL COUNT(AUTO) 2.83 MIL/uL (4.2-6.2); WHITE BLOOD COUNT (AUTO) 17.2 K/uL (4.8-10.8)
[2023-12-18 23:33] LABS: ALANINE AMINOTRANSFERASE 52 U/L (12-78); ALBUMIN 1.8 g/dL (3.4-4.8); ANION GAP 8 (5-15); ASPARTATE AMINOTRANSFERASE 37 U/L (10-37); CALCIUM 8.2 mg/dL (8.4-11.0); CARBON DIOXIDE 26 mmol/L (23-29); CHLORIDE 100 mmol/L (98-107); CREATININE 1.29 mg/dL (0.55-1.30); GLUCOSE 137 mg/dL (74-106); POTASSIUM 4.1 mmol/L (3.5-5.1); SODIUM SERUM 134 mmol/L (136-145); TOTAL BILIRUBIN 0.7 mg/dL (0.0-1.0); UREA NITROGEN, BLOOD 22 mg/dL (8-21)
[2023-12-18 23:50] LABS: INR 1.1 (0.80-1.20); PROTHROMBIN TIME 11.8 SECS (9.5-12.5)
[2023-12-19] VITALS (31 sets, daily range): BP systolic 103–146; PULSE 89–108; RESP 16–25; TEMP 97.9–98.5; O2SAT 89–100
[2023-12-19 05:31] LABS: BASOPHILS % (AUTO) 0.2 % (0.0-2.0); HEMATOCRIT 24.4 % (36-54); HEMOGLOBIN 8.1 g/dL (14.0-18.0); LYMPHOCYTES # (AUTO) 0.3 K/uL (1.0-5.5); LYMPHOCYTES % (AUTO) 1.4 % (20.5-51.5); MEAN CORPUSCULAR HEMOGLOBIN 31 pg (27-31); MEAN CORPUSCULAR HGB CONC 33 % (32-36); MEAN CORPUSCULAR VOLUME 93 fL (79.0-98.0); MONOCYTES # (AUTO) 1.4 K/uL (0.0-1.0); MONOCYTES % (AUTO) 7.5 % (1.7-9.3); NEUTROPHILS # (AUTO) 16.6 K/uL (1.8-7.7); NEUTROPHILS % (AUTO) 90.9 % (40.0-70.0); PLATELET COUNT (AUTO) 565 K/uL (130-430); RED BLOOD CELL COUNT(AUTO) 2.63 MIL/uL (4.2-6.2); RED CELL DISTRIBUTION WIDTH 14.2 % (9.0-15.0); WHITE BLOOD COUNT (AUTO) 18.2 K/uL (4.8-10.8)
[2023-12-19 06:03] LABS: ALANINE AMINOTRANSFERASE 47 U/L (12-78); ALBUMIN 1.7 g/dL (3.4-4.8); ANION GAP 6 (5-15); ASPARTATE AMINOTRANSFERASE 32 U/L (10-37); CALCIUM 8.2 mg/dL (8.4-11.0); CARBON DIOXIDE 26 mmol/L (23-29); CHLORIDE 101 mmol/L (98-107); CREATININE 1.15 mg/dL (0.55-1.30); GLUCOSE 133 mg/dL (74-106); POTASSIUM 4.2 mmol/L (3.5-5.1); SODIUM SERUM 133 mmol/L (136-145); TOTAL BILIRUBIN 0.5 mg/dL (0.0-1.0); TOTAL PROTEIN, SERUM 4.7 g/dL (6.4-8.3); UREA NITROGEN, BLOOD 23 mg/dL (8-21)
[2023-12-19 07:08] LABS: PHOSPHORUS 4.5 mg/dL (2.7-4.5)
[2023-12-19] MEDS: PANTOPRAZOLE SODIUM 40 MG/VIAL (PROTONIX) IVP SCH (08:52)
[2023-12-19] MEDS: TAMSULOSIN HCL 0.4 MG CAP PO SCH (08:52)
[2023-12-19] MEDS: MAGNESIUM SULFATE 50 ML IV ONE (08:54)
[2023-12-19] MEDS: D5/0.45 NS 1,000 ML IV SCH (08:57)
[2023-12-19] MEDS: HYDROmorphone 2 MG/ML VIAL ONE (09:48)
[2023-12-19] MEDS: TPN PERIPHERAL IV SCH (21:22)
[2023-12-19] MEDS: SODIUM ACETATE IV SCH (21:22)
[2023-12-19] MEDS: MVI IV SCH (21:22)
[2023-12-19] MEDS: MAGNESIUM SULFATE IV SCH (21:22)
[2023-12-19] MEDS: [UNRECOGNIZED DRUG - OTHER] IV SCH (21:22)
[2023-12-20] VITALS (21 sets, daily range): BP systolic 100–145; PULSE 72–109; RESP 16–32; TEMP 97.8–99.8; O2SAT 92–100
[2023-12-20 06:11] LABS: BASOPHILS % (AUTO) 0.2 % (0.0-2.0); EOSINOPHILS % (AUTO) 0.3 % (0.0-4.0); LYMPHOCYTES # (AUTO) 0.6 K/uL (1.0-5.5); LYMPHOCYTES % (AUTO) 4.7 % (20.5-51.5); MEAN CORPUSCULAR HEMOGLOBIN 31 pg (27-31); MEAN CORPUSCULAR HGB CONC 34 % (32-36); MEAN CORPUSCULAR VOLUME 93 fL (79.0-98.0); MONOCYTES # (AUTO) 1.5 K/uL (0.0-1.0); MONOCYTES % (AUTO) 11.5 % (1.7-9.3); NEUTROPHILS # (AUTO) 10.9 K/uL (1.8-7.7); NEUTROPHILS % (AUTO) 83.3 % (40.0-70.0); PLATELET COUNT (AUTO) 459 K/uL (130-430); RED BLOOD CELL COUNT(AUTO) 2.21 MIL/uL (4.2-6.2); RED CELL DISTRIBUTION WIDTH 14.3 % (9.0-15.0); WHITE BLOOD COUNT (AUTO) 13.1 K/uL (4.8-10.8)
[2023-12-20 06:16] LABS: HEMATOCRIT 20.4 % (36-54); HEMOGLOBIN 6.8 g/dL (14.0-18.0)
[2023-12-20 06:26] LABS: ASPARTATE AMINOTRANSFERASE 26 U/L (10-37); CALCIUM 7.7 mg/dL (8.4-11.0); CHLORIDE 102 mmol/L (98-107); GLUCOSE 133 mg/dL (74-106); PHOSPHORUS 2.6 mg/dL (2.7-4.5); UREA NITROGEN, BLOOD 23 mg/dL (8-21)
[2023-12-20 06:40] LABS: ALANINE AMINOTRANSFERASE 33 U/L (12-78); ALBUMIN 1.4 g/dL (3.4-4.8); ANION GAP 5 (5-15); CARBON DIOXIDE 25 mmol/L (23-29); CREATININE 1.03 mg/dL (0.55-1.30); POTASSIUM 4.2 mmol/L (3.5-5.1); SODIUM SERUM 132 mmol/L (136-145); TOTAL BILIRUBIN 0.4 mg/dL (0.0-1.0); TOTAL PROTEIN, SERUM 4.4 g/dL (6.4-8.3)
[2023-12-20 11:32] LABS: BASOPHILS % (AUTO) 0.4 % (0.0-2.0); EOSINOPHILS # (AUTO) 0.1 K/uL (0.0-0.4); EOSINOPHILS % (AUTO) 0.7 % (0.0-4.0); HEMATOCRIT 24.3 % (36-54); HEMOGLOBIN 8.1 g/dL (14.0-18.0); LYMPHOCYTES # (AUTO) 0.7 K/uL (1.0-5.5); LYMPHOCYTES % (AUTO) 5.8 % (20.5-51.5); MEAN CORPUSCULAR HEMOGLOBIN 31 pg (27-31); MEAN CORPUSCULAR HGB CONC 34 % (32-36); MEAN CORPUSCULAR VOLUME 92 fL (79.0-98.0); MONOCYTES # (AUTO) 1.5 K/uL (0.0-1.0); NEUTROPHILS # (AUTO) 9.4 K/uL (1.8-7.7); NEUTROPHILS % (AUTO) 80.1 % (40.0-70.0); PLATELET COUNT (AUTO) 462 K/uL (130-430); RED BLOOD CELL COUNT(AUTO) 2.65 MIL/uL (4.2-6.2); RED CELL DISTRIBUTION WIDTH 14.4 % (9.0-15.0); WHITE BLOOD COUNT (AUTO) 11.7 K/uL (4.8-10.8)
[2023-12-20] MEDS: MORPHINE 2 MG/ML INJ. SYRINGE IVP PRN (17:59)
[2023-12-20] MEDS ORDERED: NALOXONE HCL 0.4 MG/ML AMP (NARCAN) IVP PRN (18:30)
[2023-12-20] MEDS ORDERED: HYDROcodone/ACETAMIN 5-325 MG TAB (NORCO/ VICODIN) PO PRN (18:30)
[2023-12-20] MEDS: SODIUM ACETATE IV SCH (22:00)
[2023-12-20] MEDS: NA PHOS IV SCH (22:00)
[2023-12-20] MEDS: TPN CENTRAL IV SCH (22:00)
[2023-12-20] MEDS: [UNRECOGNIZED DRUG - OTHER] IV SCH (22:00)
[2023-12-20] MEDS: MAGNESIUM SULFATE IV SCH (22:00)
[2023-12-21] VITALS (15 sets, daily range): BP systolic 110–151; PULSE 92–118; RESP 16–25; TEMP 98.2–100.3; O2SAT 95–100
[2023-12-21] MEDS: COMMUNICATION ORDER XX ONE (02:06)
[2023-12-21] MEDS: KETOROLAC TROMETHAMINE 10 MG TABLET (TORADOL) PO SCH (02:07)
[2023-12-21 06:12] LABS: BASOPHILS # (AUTO) 0.1 K/uL (0.0-0.2); BASOPHILS % (AUTO) 0.5 % (0.0-2.0); EOSINOPHILS # (AUTO) 0.2 K/uL (0.0-0.4); EOSINOPHILS % (AUTO) 2.3 % (0.0-4.0); HEMATOCRIT 24.9 % (36-54); HEMOGLOBIN 8.4 g/dL (14.0-18.0); LYMPHOCYTES # (AUTO) 0.6 K/uL (1.0-5.5); LYMPHOCYTES % (AUTO) 5.7 % (20.5-51.5); MEAN CORPUSCULAR HEMOGLOBIN 31 pg (27-31); MEAN CORPUSCULAR HGB CONC 34 % (32-36); MEAN CORPUSCULAR VOLUME 93 fL (79.0-98.0); MONOCYTES % (AUTO) 10.4 % (1.7-9.3); NEUTROPHILS % (AUTO) 81.1 % (40.0-70.0); PLATELET COUNT (AUTO) 423 K/uL (130-430); RED BLOOD CELL COUNT(AUTO) 2.69 MIL/uL (4.2-6.2); RED CELL DISTRIBUTION WIDTH 14.2 % (9.0-15.0); WHITE BLOOD COUNT (AUTO) 9.9 K/uL (4.8-10.8)
[2023-12-21 06:32] LABS: ALANINE AMINOTRANSFERASE 38 U/L (12-78); ALBUMIN 1.3 g/dL (3.4-4.8); ANION GAP 3 (5-15); ASPARTATE AMINOTRANSFERASE 35 U/L (10-37); CALCIUM 7.6 mg/dL (8.4-11.0); CARBON DIOXIDE 27 mmol/L (23-29); CHLORIDE 99 mmol/L (98-107); CREATININE 0.89 mg/dL (0.55-1.30); GLUCOSE 124 mg/dL (74-106); POTASSIUM 3.8 mmol/L (3.5-5.1); SODIUM SERUM 129 mmol/L (136-145); TOTAL BILIRUBIN 0.5 mg/dL (0.0-1.0); TOTAL PROTEIN, SERUM 4.4 g/dL (6.4-8.3); UREA NITROGEN, BLOOD 22 mg/dL (8-21)
[2023-12-21] MEDS: ONDANSETRON HCL 4 MG/2 ML VIAL IM PRN (18:40)
[2023-12-21] MEDS: D5/0.45 NS 1,000 ML IV SCH (18:46)
[2023-12-21] MEDS: [UNRECOGNIZED DRUG - OTHER] IV SCH (20:14)
[2023-12-21] MEDS: TPN CENTRAL IV SCH (20:14)
[2023-12-21] MEDS: SODIUM ACETATE IV SCH (20:14)
[2023-12-21] MEDS: NA PHOS IV SCH (20:14)
[2023-12-22] VITALS (10 sets, daily range): BP systolic 105–119; PULSE 78–109; RESP 18–19; TEMP 97.8–98.3; O2SAT 95–98
[2023-12-22 06:24] LABS: BASOPHILS % (AUTO) 0.3 % (0.0-2.0); EOSINOPHILS # (AUTO) 0.2 K/uL (0.0-0.4); EOSINOPHILS % (AUTO) 1.7 % (0.0-4.0); HEMATOCRIT 26.3 % (36-54); HEMOGLOBIN 8.9 g/dL (14.0-18.0); LYMPHOCYTES # (AUTO) 0.7 K/uL (1.0-5.5); LYMPHOCYTES % (AUTO) 6.8 % (20.5-51.5); MEAN CORPUSCULAR HEMOGLOBIN 31 pg (27-31); MEAN CORPUSCULAR HGB CONC 34 % (32-36); MEAN CORPUSCULAR VOLUME 92 fL (79.0-98.0); MONOCYTES # (AUTO) 1.3 K/uL (0.0-1.0); MONOCYTES % (AUTO) 13.1 % (1.7-9.3); NEUTROPHILS # (AUTO) 7.8 K/uL (1.8-7.7); NEUTROPHILS % (AUTO) 78.1 % (40.0-70.0); PLATELET COUNT (AUTO) 477 K/uL (130-430); RED BLOOD CELL COUNT(AUTO) 2.87 MIL/uL (4.2-6.2); RED CELL DISTRIBUTION WIDTH 14.2 % (9.0-15.0)
[2023-12-22 07:13] LABS: ALANINE AMINOTRANSFERASE 64 U/L (12-78); ALBUMIN 1.4 g/dL (3.4-4.8); ANION GAP 8 (5-15); CALCIUM 7.7 mg/dL (8.4-11.0); CARBON DIOXIDE 25 mmol/L (23-29); CHLORIDE 96 mmol/L (98-107); CREATININE 0.87 mg/dL (0.55-1.30); GLUCOSE 118 mg/dL (74-106); POTASSIUM 3.9 mmol/L (3.5-5.1); SODIUM SERUM 129 mmol/L (136-145); TOTAL BILIRUBIN 0.6 mg/dL (0.0-1.0); TOTAL PROTEIN, SERUM 4.7 g/dL (6.4-8.3); UREA NITROGEN, BLOOD 22 mg/dL (8-21)
[2023-12-22 08:10] LABS: ASPARTATE AMINOTRANSFERASE 63 U/L (10-37)
[2023-12-22] MEDS: D5NS 1,000 ML IV SCH (14:37)
[2023-12-22] MEDS: NA PHOS IV SCH (22:20)
[2023-12-22] MEDS: TPN CENTRAL IV SCH (22:20)
[2023-12-22] MEDS: SODIUM CHLORIDE IV SCH (22:20)
[2023-12-22] MEDS: [UNRECOGNIZED DRUG - OTHER] IV SCH (22:20)
[2023-12-23] VITALS (11 sets, daily range): BP systolic 104–143; PULSE 95–102; RESP 18–20; TEMP 97.6–99.1; O2SAT 94–100
[2023-12-23 08:05] LABS: ALANINE AMINOTRANSFERASE 113 U/L (12-78); ALBUMIN 1.3 g/dL (3.4-4.8); ANION GAP 5 (5-15); ASPARTATE AMINOTRANSFERASE 97 U/L (10-37); CALCIUM 7.5 mg/dL (8.4-11.0); CARBON DIOXIDE 26 mmol/L (23-29); CHLORIDE 96 mmol/L (98-107); CREATININE 0.74 mg/dL (0.55-1.30); GLUCOSE 110 mg/dL (74-106); PHOSPHORUS 1.9 mg/dL (2.7-4.5); POTASSIUM 3.8 mmol/L (3.5-5.1); SODIUM SERUM 127 mmol/L (136-145); TOTAL BILIRUBIN 0.4 mg/dL (0.0-1.0); TOTAL PROTEIN, SERUM 4.4 g/dL (6.4-8.3); UREA NITROGEN, BLOOD 23 mg/dL (8-21)
[2023-12-23 08:17] LABS: BASOPHILS % (AUTO) 0.5 % (0.0-2.0); EOSINOPHILS # (AUTO) 0.2 K/uL (0.0-0.4); EOSINOPHILS % (AUTO) 2.9 % (0.0-4.0); HEMATOCRIT 26.2 % (36-54); LYMPHOCYTES # (AUTO) 0.5 K/uL (1.0-5.5); LYMPHOCYTES % (AUTO) 7.4 % (20.5-51.5); MEAN CORPUSCULAR HEMOGLOBIN 31 pg (27-31); MEAN CORPUSCULAR HGB CONC 35 % (32-36); MEAN CORPUSCULAR VOLUME 91 fL (79.0-98.0); MONOCYTES # (AUTO) 1.1 K/uL (0.0-1.0); MONOCYTES % (AUTO) 14.3 % (1.7-9.3); NEUTROPHILS # (AUTO) 5.6 K/uL (1.8-7.7); PLATELET COUNT (AUTO) 405 K/uL (130-430); RED CELL DISTRIBUTION WIDTH 14.1 % (9.0-15.0); WHITE BLOOD COUNT (AUTO) 7.5 K/uL (4.8-10.8)
[2023-12-23 11:04] LABS: NEUTROPHILS % (AUTO) 74.9 % (40.0-70.0)
[2023-12-23] MEDS: FUROSEMIDE 20 MG/2 ML VIAL IVP ONE (11:11)
[2023-12-23] MEDS: MAGNESIUM SULFATE 50 ML IV ONE (11:12)
[2023-12-23] MEDS: NA PHOS 30 MM in NS 250 ML IV ONE (13:44)
[2023-12-23] MEDS: ALBUMIN HUMAN 25% 50 ML IV SCH (16:11)
[2023-12-23] MEDS: TPN CENTRAL IV SCH (22:57)
[2023-12-23] MEDS: [UNRECOGNIZED DRUG - OTHER] IV SCH (22:57)
[2023-12-23] MEDS: NA PHOS IV SCH (22:57)
[2023-12-23] MEDS: SODIUM CHLORIDE IV SCH (22:57)
[2023-12-24] VITALS (8 sets, daily range): BP systolic 115–130; PULSE 87–97; RESP 16–22; TEMP 98.4–99.1; O2SAT 96–99
[2023-12-24 07:05] LABS: ALANINE AMINOTRANSFERASE 123 U/L (12-78); ALBUMIN 1.8 g/dL (3.4-4.8); ANION GAP 6 (5-15); ASPARTATE AMINOTRANSFERASE 95 U/L (10-37); CALCIUM 7.7 mg/dL (8.4-11.0); CARBON DIOXIDE 26 mmol/L (23-29); CHLORIDE 96 mmol/L (98-107); CREATININE 0.88 mg/dL (0.55-1.30); GLUCOSE 113 mg/dL (74-106); POTASSIUM 3.6 mmol/L (3.5-5.1); SODIUM SERUM 128 mmol/L (136-145); TOTAL BILIRUBIN 0.5 mg/dL (0.0-1.0); TOTAL PROTEIN, SERUM 4.4 g/dL (6.4-8.3); UREA NITROGEN, BLOOD 29 mg/dL (8-21)
[2023-12-24 07:07] LABS: BASOPHILS # (AUTO) 0.1 K/uL (0.0-0.2); BASOPHILS % (AUTO) 0.8 % (0.0-2.0); EOSINOPHILS # (AUTO) 0.3 K/uL (0.0-0.4); EOSINOPHILS % (AUTO) 3.8 % (0.0-4.0); HEMATOCRIT 22.9 % (36-54); HEMOGLOBIN 7.8 g/dL (14.0-18.0); LYMPHOCYTES # (AUTO) 0.6 K/uL (1.0-5.5); LYMPHOCYTES % (AUTO) 8.3 % (20.5-51.5); MEAN CORPUSCULAR HEMOGLOBIN 31 pg (27-31); MEAN CORPUSCULAR HGB CONC 34 % (32-36); MEAN CORPUSCULAR VOLUME 91 fL (79.0-98.0); MONOCYTES % (AUTO) 14.8 % (1.7-9.3); NEUTROPHILS # (AUTO) 4.8 K/uL (1.8-7.7); NEUTROPHILS % (AUTO) 72.3 % (40.0-70.0); PLATELET COUNT (AUTO) 353 K/uL (130-430); RED BLOOD CELL COUNT(AUTO) 2.52 MIL/uL (4.2-6.2); WHITE BLOOD COUNT (AUTO) 6.6 K/uL (4.8-10.8)
[2023-12-24] MEDS: FUROSEMIDE 20 MG/2 ML VIAL IVP ONE (11:34)
[2023-12-24] MEDS: NA PHOS IV SCH (22:13)
[2023-12-24] MEDS: SODIUM CHLORIDE IV SCH (22:13)
[2023-12-24] MEDS: TPN CENTRAL IV SCH (22:13)
[2023-12-24] MEDS: [UNRECOGNIZED DRUG - OTHER] IV SCH (22:13)
[2023-12-24] MEDS: FAT EMULSIONS 250 ML IV SCH (22:16)
[2023-12-25] VITALS (9 sets, daily range): BP systolic 120–144; PULSE 71–104; RESP 16–20; TEMP 97.6–99.2; O2SAT 93–99
[2023-12-25 06:50] LABS: ALANINE AMINOTRANSFERASE 112 U/L (12-78); ALBUMIN 1.6 g/dL (3.4-4.8); ANION GAP 4 (5-15); ASPARTATE AMINOTRANSFERASE 71 U/L (10-37); CALCIUM 7.6 mg/dL (8.4-11.0); CARBON DIOXIDE 27 mmol/L (23-29); CHLORIDE 94 mmol/L (98-107); GLUCOSE 107 mg/dL (74-106); PHOSPHORUS 2.1 mg/dL (2.7-4.5); POTASSIUM 3.8 mmol/L (3.5-5.1); SODIUM SERUM 125 mmol/L (136-145); TOTAL BILIRUBIN 0.4 mg/dL (0.0-1.0); TOTAL PROTEIN, SERUM 4.4 g/dL (6.4-8.3); UREA NITROGEN, BLOOD 32 mg/dL (8-21)
[2023-12-25 07:28] LABS: BASOPHILS # (AUTO) 0.1 K/uL (0.0-0.2); BASOPHILS % (AUTO) 0.9 % (0.0-2.0); EOSINOPHILS # (AUTO) 0.2 K/uL (0.0-0.4); EOSINOPHILS % (AUTO) 3.5 % (0.0-4.0); HEMATOCRIT 24.9 % (36-54); HEMOGLOBIN 8.5 g/dL (14.0-18.0); LYMPHOCYTES # (AUTO) 0.4 K/uL (1.0-5.5); LYMPHOCYTES % (AUTO) 6.6 % (20.5-51.5); MEAN CORPUSCULAR HEMOGLOBIN 31 pg (27-31); MEAN CORPUSCULAR HGB CONC 34 % (32-36); MEAN CORPUSCULAR VOLUME 91 fL (79.0-98.0); MONOCYTES % (AUTO) 14.3 % (1.7-9.3); PLATELET COUNT (AUTO) 351 K/uL (130-430); RED BLOOD CELL COUNT(AUTO) 2.75 MIL/uL (4.2-6.2); RED CELL DISTRIBUTION WIDTH 14.4 % (9.0-15.0); WHITE BLOOD COUNT (AUTO) 6.7 K/uL (4.8-10.8)
[2023-12-25] MEDS: IPRATROPIUM/ALBUTEROL SULFATE 3 ML AMPUL.NEB (DUONEB) INH PRN (08:59)
[2023-12-25 12:05] LABS: NEUTROPHILS % (AUTO) 74.7 % (40.0-70.0)
[2023-12-25] MEDS: SODIUM CHLORIDE 3% *HI-ALERT* 500 ML IV SCH (18:22)
[2023-12-25] MEDS: NA PHOS IV SCH (22:39)
[2023-12-25] MEDS: [UNRECOGNIZED DRUG - OTHER] IV SCH (22:39)
[2023-12-25] MEDS: TPN CENTRAL IV SCH (22:39)
[2023-12-25] MEDS: SODIUM CHLORIDE IV SCH (22:39)
[2023-12-26] VITALS (9 sets, daily range): BP systolic 115–137; PULSE 2–99; RESP 15–20; TEMP 97.5–98.6; O2SAT 95–98
[2023-12-26 05:16] LABS: BASOPHILS % (AUTO) 0.5 % (0.0-2.0); EOSINOPHILS # (AUTO) 0.3 K/uL (0.0-0.4); EOSINOPHILS % (AUTO) 3.5 % (0.0-4.0); HEMATOCRIT 26.4 % (36-54); HEMOGLOBIN 8.7 g/dL (14.0-18.0); LYMPHOCYTES # (AUTO) 0.9 K/uL (1.0-5.5); LYMPHOCYTES % (AUTO) 11.1 % (20.5-51.5); MEAN CORPUSCULAR HEMOGLOBIN 30 pg (27-31); MEAN CORPUSCULAR HGB CONC 33 % (32-36); MEAN CORPUSCULAR VOLUME 91 fL (79.0-98.0); MONOCYTES # (AUTO) 1.1 K/uL (0.0-1.0); MONOCYTES % (AUTO) 14.6 % (1.7-9.3); NEUTROPHILS # (AUTO) 5.4 K/uL (1.8-7.7); NEUTROPHILS % (AUTO) 70.3 % (40.0-70.0); PLATELET COUNT (AUTO) 357 K/uL (130-430); RED BLOOD CELL COUNT(AUTO) 2.91 MIL/uL (4.2-6.2); RED CELL DISTRIBUTION WIDTH 14.4 % (9.0-15.0); WHITE BLOOD COUNT (AUTO) 7.7 K/uL (4.8-10.8)
[2023-12-26 05:47] LABS: ALANINE AMINOTRANSFERASE 93 U/L (12-78); ALBUMIN 1.6 g/dL (3.4-4.8); ANION GAP 2 (5-15); ASPARTATE AMINOTRANSFERASE 53 U/L (10-37); CALCIUM 7.2 mg/dL (8.4-11.0); CARBON DIOXIDE 30 mmol/L (23-29); CHLORIDE 96 mmol/L (98-107); CREATININE 0.79 mg/dL (0.55-1.30); GLUCOSE 125 mg/dL (74-106); LIPASE 78 U/L (16-77); PHOSPHORUS 2.2 mg/dL (2.7-4.5); POTASSIUM 3.6 mmol/L (3.5-5.1); SODIUM SERUM 128 mmol/L (136-145); TOTAL BILIRUBIN 0.4 mg/dL (0.0-1.0); TOTAL PROTEIN, SERUM 4.4 g/dL (6.4-8.3); UREA NITROGEN, BLOOD 29 mg/dL (8-21)
[2023-12-26] MEDS ORDERED: SODIUM CHLORIDE 3% *HI-ALERT* 500 ML IV SCH (08:45)
[2023-12-26] MEDS: cefTRIAXone 1 GM in D5W 50 ML IV SCH (13:03)
[2023-12-26] MEDS: metroNIDAZOLE 500 mg/NS 100 ML IV ONE (13:05)
[2023-12-26] MEDS: K PHOS 30 MM in NS 250 ML IV ONE (15:47)
[2023-12-26] MEDS: COMMUNICATION ORDER XX ONE (16:44)
[2023-12-26] MEDS: SODIUM CHLORIDE 3% *HI-ALERT* 500 ML IV ONE (22:08)
[2023-12-26] MEDS: metroNIDAZOLE 500 mg/NS 100 ML IV SCH (22:21)
[2023-12-27] VITALS (10 sets, daily range): BP systolic 109–141; PULSE 88–91; RESP 18–20; TEMP 98.3–99; O2SAT 95–98
[2023-12-27 08:05] LABS: BASOPHILS # (AUTO) 0.1 K/uL (0.0-0.2); BASOPHILS % (AUTO) 0.8 % (0.0-2.0); EOSINOPHILS % (AUTO) 3.6 % (0.0-4.0); HEMATOCRIT 26.9 % (36-54); HEMOGLOBIN 9.1 g/dL (14.0-18.0); LYMPHOCYTES % (AUTO) 7.9 % (20.5-51.5)
[2023-12-27 08:07] LABS: EOSINOPHILS # (AUTO) 0.3 K/uL (0.0-0.4); LYMPHOCYTES # (AUTO) 0.7 K/uL (1.0-5.5); MEAN CORPUSCULAR HEMOGLOBIN 30 pg (27-31); MEAN CORPUSCULAR HGB CONC 34 % (32-36); MEAN CORPUSCULAR VOLUME 90 fL (79.0-98.0); MONOCYTES # (AUTO) 1.3 K/uL (0.0-1.0); MONOCYTES % (AUTO) 13.9 % (1.7-9.3); NEUTROPHILS % (AUTO) 73.8 % (40.0-70.0); PLATELET COUNT (AUTO) 373 K/uL (130-430); RED BLOOD CELL COUNT(AUTO) 2.99 MIL/uL (4.2-6.2); RED CELL DISTRIBUTION WIDTH 14.9 % (9.0-15.0); WHITE BLOOD COUNT (AUTO) 9.5 K/uL (4.8-10.8)
[2023-12-27 08:19] LABS: ALANINE AMINOTRANSFERASE 73 U/L (12-78); ALBUMIN 1.6 g/dL (3.4-4.8); ANION GAP 7 (5-15); ASPARTATE AMINOTRANSFERASE 43 U/L (10-37); CALCIUM 7.9 mg/dL (8.4-11.0); CARBON DIOXIDE 24 mmol/L (23-29); CHLORIDE 99 mmol/L (98-107); CREATININE 0.62 mg/dL (0.55-1.30); GLUCOSE 100 mg/dL (74-106); POTASSIUM 3.9 mmol/L (3.5-5.1); SODIUM SERUM 130 mmol/L (136-145); TOTAL BILIRUBIN 0.4 mg/dL (0.0-1.0); TOTAL PROTEIN, SERUM 4.6 g/dL (6.4-8.3); UREA NITROGEN, BLOOD 25 mg/dL (8-21)
[2023-12-27] MEDS: IPRATROPIUM/ALBUTEROL SULFATE 3 ML AMPUL.NEB (DUONEB) INH SCH (20:29)
[2023-12-28] VITALS (9 sets, daily range): BP systolic 115–134; PULSE 86–94; RESP 16–18; TEMP 98.6–98.8; O2SAT 93–100
[2023-12-28 08:20] LABS: BASOPHILS # (AUTO) 0.1 K/uL (0.0-0.2); EOSINOPHILS # (AUTO) 0.2 K/uL (0.0-0.4); EOSINOPHILS % (AUTO) 3.2 % (0.0-4.0); HEMATOCRIT 27.1 % (36-54); HEMOGLOBIN 9.1 g/dL (14.0-18.0); LYMPHOCYTES # (AUTO) 0.7 K/uL (1.0-5.5); LYMPHOCYTES % (AUTO) 9.7 % (20.5-51.5); MEAN CORPUSCULAR HEMOGLOBIN 30 pg (27-31); MEAN CORPUSCULAR HGB CONC 34 % (32-36); MEAN CORPUSCULAR VOLUME 90 fL (79.0-98.0); MONOCYTES # (AUTO) 1.2 K/uL (0.0-1.0); MONOCYTES % (AUTO) 15.7 % (1.7-9.3); NEUTROPHILS # (AUTO) 5.2 K/uL (1.8-7.7); NEUTROPHILS % (AUTO) 70.4 % (40.0-70.0); PLATELET COUNT (AUTO) 379 K/uL (130-430); RED BLOOD CELL COUNT(AUTO) 3.01 MIL/uL (4.2-6.2); RED CELL DISTRIBUTION WIDTH 15.1 % (9.0-15.0); WHITE BLOOD COUNT (AUTO) 7.4 K/uL (4.8-10.8)
[2023-12-28 08:40] LABS: ALANINE AMINOTRANSFERASE 59 U/L (12-78); ALBUMIN 1.8 g/dL (3.4-4.8); ANION GAP 7 (5-15); ASPARTATE AMINOTRANSFERASE 35 U/L (10-37); CALCIUM 8.1 mg/dL (8.4-11.0); CARBON DIOXIDE 24 mmol/L (23-29); CHLORIDE 99 mmol/L (98-107); CREATININE 0.74 mg/dL (0.55-1.30); GLUCOSE 105 mg/dL (74-106); POTASSIUM 3.7 mmol/L (3.5-5.1); SODIUM SERUM 130 mmol/L (136-145); TOTAL BILIRUBIN 0.5 mg/dL (0.0-1.0); TOTAL PROTEIN, SERUM 4.8 g/dL (6.4-8.3); UREA NITROGEN, BLOOD 23 mg/dL (8-21)
[2023-12-28] MEDS: FUROSEMIDE 20 MG/2 ML VIAL IVP ONE (13:05)
[2023-12-28] MEDS: D5/0.45 NS 1,000 ML IV SCH (13:17)
[2023-12-28] MEDS: IPRATROPIUM/ALBUTEROL SULFATE 3 ML AMPUL.NEB (DUONEB) INH SCH (13:28)
[2023-12-28] MEDS: FUROSEMIDE 40 MG/4 ML VIAL IVP ONE (14:49)
[2023-12-29] VITALS (9 sets, daily range): BP systolic 113–126; PULSE 80–89; RESP 18–22; TEMP 97.9–98.3; O2SAT 96–100
[2023-12-29] MEDS: FUROSEMIDE 40 MG/4 ML VIAL IVP SCH (08:30)
[2023-12-29 11:21] LABS: BASOPHILS # (AUTO) 0.1 K/uL (0.0-0.2); BASOPHILS % (AUTO) 0.6 % (0.0-2.0); EOSINOPHILS # (AUTO) 0.1 K/uL (0.0-0.4); EOSINOPHILS % (AUTO) 1.6 % (0.0-4.0); HEMATOCRIT 27.5 % (36-54); HEMOGLOBIN 9.2 g/dL (14.0-18.0); LYMPHOCYTES # (AUTO) 0.4 K/uL (1.0-5.5); LYMPHOCYTES % (AUTO) 4.3 % (20.5-51.5); MEAN CORPUSCULAR HEMOGLOBIN 30 pg (27-31); MEAN CORPUSCULAR HGB CONC 34 % (32-36); MEAN CORPUSCULAR VOLUME 90 fL (79.0-98.0); MONOCYTES # (AUTO) 0.8 K/uL (0.0-1.0); MONOCYTES % (AUTO) 9.4 % (1.7-9.3); NEUTROPHILS # (AUTO) 7.5 K/uL (1.8-7.7); NEUTROPHILS % (AUTO) 84.1 % (40.0-70.0); PLATELET COUNT (AUTO) 399 K/uL (130-430); RED BLOOD CELL COUNT(AUTO) 3.06 MIL/uL (4.2-6.2); WHITE BLOOD COUNT (AUTO) 8.9 K/uL (4.8-10.8)
[2023-12-29 11:25] LABS: ALANINE AMINOTRANSFERASE 47 U/L (12-78); ALBUMIN 1.7 g/dL (3.4-4.8); ANION GAP 8 (5-15); ASPARTATE AMINOTRANSFERASE 33 U/L (10-37); CARBON DIOXIDE 27 mmol/L (23-29); CHLORIDE 97 mmol/L (98-107); GLUCOSE 131 mg/dL (74-106); POTASSIUM 3.2 mmol/L (3.5-5.1); SODIUM SERUM 132 mmol/L (136-145); TOTAL BILIRUBIN 0.3 mg/dL (0.0-1.0); TOTAL PROTEIN, SERUM 4.8 g/dL (6.4-8.3); UREA NITROGEN, BLOOD 19 mg/dL (8-21)
[2023-12-29 15:06] LABS: ANTI-SMOOTH MUSCLE AB 1 Units (0-19)
[2023-12-29] MEDS: POTASSIUM CHLORIDE 20 MEQ TABLET.ER PO ONE (17:10)
[2023-12-29] MEDS ORDERED: POTASSIUM CHLORIDE 20 MEQ TABLET.ER PO ONE (17:15)
[2023-12-30] VITALS (9 sets, daily range): BP systolic 113–123; PULSE 91–102; RESP 16–18; TEMP 97.9–98.3; O2SAT 94–96
[2023-12-30 01:05] LABS: HEPATITIS A AB, IgM Negative (Negative); HEPATITIS B CORE AB, IgM Negative (Negative); HEPATITIS B SURFACE AG Negative (Negative); HEPATITIS C VIRUS AB Non Reactive (Non Reactive)
[2023-12-30] MEDS ORDERED: HYDROcodone/ACETAMIN 5-325 MG TAB (NORCO/ VICODIN) PO PRN (11:30)
[2023-12-30] MEDS: METOPROLOL SUCCINATE 25 MG TAB.SR.24H (TOPROL XL) PO ONE (12:58)
[2023-12-30] MEDS: AMIODARONE HCL 200 MG TABLET PO ONE ×2 (12:59→13:42)
[2023-12-30] MEDS: HEPARIN SODIUM,PORCINE 5,000 UNITS/ML VIAL SUBCUT ONE (13:03)
[2023-12-30] MEDS ORDERED: AMIO200T6 PO (13:32)
[2023-12-30] MEDS ORDERED: POTA-197 PO (13:32)
[2023-12-30] MEDS ORDERED: FURO-149 PO (13:32)
[2023-12-30] MEDS ORDERED: PRO40 PO (13:36)
[2023-12-30] MEDS: POTASSIUM CHLORIDE 20 MEQ TABLET.ER PO ONE (13:56)
[2023-12-30] MEDS ORDERED: FUROSEMIDE 40 MG/4 ML VIAL IVP SCH ×2 (18:00→21:00)
[2023-12-30] MEDS ORDERED: AMIODARONE HCL 200 MG TABLET PO SCH (21:00)
[2023-12-30] MEDS ORDERED: HEPARIN SODIUM,PORCINE 5,000 UNITS/ML VIAL SUBCUT SCH (21:00)
[2023-12-31] MEDS ORDERED: POTASSIUM CHLORIDE 20 MEQ TABLET.ER PO SCH (09:00)
[2023-12-31] MEDS ORDERED: PANTOPRAZOLE SODIUM 40 MG TAB PO SCH (09:00)
[2023-12-31] MEDS ORDERED: METOPROLOL SUCCINATE 25 MG TAB.SR.24H (TOPROL XL) PO SCH (09:00)
== END 2023-12-30 16:15 | disposition home health service (06) | DRG 853 ==
LOC: SED 01:15 → SMU 03:46 → SIC 12-18 16:19 → STU 12-21 16:27
PROVIDERS: ADMIT Family Medicine; ATTEND Family Medicine
PROC: 0DNW0ZZ Release Peritoneum, Open Approach (ICD-10-PCS; 2023-12-07)
PROC: 0DTH0ZZ Resection of Cecum, Open Approach (ICD-10-PCS; principal; 2023-12-07 06:00)
PROC: 02HV33Z Insertion of Infusion Device into Superior Vena Cava, Percutaneous Approach (ICD-10-PCS; 2023-12-19)
PROC: B548ZZA Ultrasonography of Superior Vena Cava, Guidance (ICD-10-PCS; 2023-12-19)
PROC: 30233N1 Transfusion of Nonautologous Red Blood Cells into Peripheral Vein, Percutaneous Approach (ICD-10-PCS; 2023-12-20)
DX: A41.9 Sepsis, unspecified organism (principal); E43 Unspecified severe protein-calorie malnutrition; K56.2 Volvulus; J69.0 Pneumonitis due to inhalation of food and vomit; K63.1 Perforation of intestine (nontraumatic); K65.9 Peritonitis, unspecified; J96.01 Acute respiratory failure with hypoxia; E87.1 Hypo-osmolality and hyponatremia; N17.9 Acute kidney failure, unspecified; K56.7 Ileus, unspecified; T81.31XA Disruption of external operation (surgical) wound, not elsewhere classified, initial encounter; I25.119 Atherosclerotic heart disease of native coronary artery with unspecified angina pectoris; E83.51 Hypocalcemia; D64.9 Anemia, unspecified; I10 Essential (primary) hypertension; R74.01 Elevation of levels of liver transaminase levels; I48.0 Paroxysmal atrial fibrillation; E87.6 Hypokalemia; I71.9 Aortic aneurysm of unspecified site, without rupture; E78.5 Hyperlipidemia, unspecified; Z85.46 Personal history of malignant neoplasm of prostate; Z95.2 Presence of prosthetic heart valve; Z79.01 Long term (current) use of anticoagulants; Z88.8 Allergy status to other drugs, medicaments and biological substances; Z79.899 Other long term (current) drug therapy; Y83.9 Surgical procedure, unspecified as the cause of abnormal reaction of the patient, or of later complication, without mention of misadventure at the time of the procedure; Y92.9 Unspecified place or not applicable; K66.0 Peritoneal adhesions (postprocedural) (postinfection); C61 Malignant neoplasm of prostate; F03.90 Unspecified dementia, unspecified severity, without behavioral disturbance, psychotic disturbance, mood disturbance, and anxiety
CPT/HCPCS: 36415; 71045; 71100; 74018; 76700; 80048; 80053; 80074; 80076; 81000; 81001; 81015; 82330; 82533; 82948; 83516; 83690; 83735; 83880; 83930; 83935; 84100; 84439; 84443; 84478; 85007; 85025; 85027; 85610; 85730; 86886; 86900; 86901; 86920; 88305; 88307; 92610-GN; 93005; 93306; 94070; 94640; 94760; 96379; 97110-GP; 97112-GP; 97116-GP; 97530-GP; 99285; A4371; C1751; G0378; J0330; J0690; J0696; J1100; J1170; J1644; J1940; J2185; J2270; J2405; J2470; J2543; J2704; J2710; J2765; J3370; J3475; J3480; J3490; J7030; J7042; J7050; J7060; J7120; J7131; J8597; P9021; P9046; Q9967